=== PATIENT | male | born 1955 | race Caucasian/White ===

== ENCOUNTER 2022-06-27 21:00 | Emergency (ER) | payer MEDICARE, OTHER, SELFPAY ==
[2022-06-27] VITALS (13 sets, daily range): BP systolic 116–235; BP diastolic 64–102; PULSE 52–63; RESP 12–18; TEMP 36.8; O2SAT 93–98
--- NOTE | 2022-06-27 21:23 | ECG_ITS ---
Measurements Intervals [place] Rate: 59 P: 148 IA: 202 QRS: 80 QRSD: 121 T: 72 QT: 465 QTc: 463 Interpretive Statements SINUS BRADYCARDIA BORDERLINE AV CONDUCTION DELAY INTRAVENTRICULAR CONDUCTION DELAY BASELINE WANDER- II, III, AVF, V1-V6 BORDERLINE ECG Electronically Signed On 06-27-2022 21:52:56 CDT by Raz Meade D.O.
--- NOTE | 2022-06-27 21:24 | ED.GENADULT ---
HPI - General Adult General Chief complaint: Recheck/Abnormal Lab/Rx Stated complaint: epitaxis, high blood pressure Time Seen by Provider: 06/27/22 21:15 History of Present Illness HPI narrative: Patient is a 66-year-old male complaining of elevated blood pressure and nosebleed, 3 episodes, started today. Patient states that his blood pressure at home was in the 200s. Patient's nosebleed has resolved. Patient denies any headache, dizziness, chest pain, shortness of breath, abdominal pain, nausea, vomiting, diaphoresis, fever or chills. Related Data Home Medications Medication Instructions Recorded Confirmed aspirin 81 mg tablet,delayed 81 mg PO DAILY 10/23/19 10/23/19 release (Aspir-) atorvastatin 80 mg tablet 80 mg PO HS 10/23/19 10/23/19 fluticasone furoate 200 1 inh inhalation DAILY 10/23/19 10/23/19 mcg-vilanterol 25 mcg/dose inhalation powder (Breo Ellipta) lisinopril 20 mg tablet 20 mg PO DAILY 10/23/19 10/23/19 montelukast 10 mg tablet 10 mg PO HS 10/23/19 10/23/19 rivaroxaban 20 mg tablet (Xarelto) 20 mg PO HS 10/23/19 10/23/19 carvedilol 12.5 mg tablet mg 06/27/22 fexofenadine 180 mg tablet 180 mg PO DAILY 06/27/22 ([facility] Allergy) hydralazine 25 mg tablet mg 06/27/22 spironolactone 25 mg tablet mg 06/27/22 sulfamethoxazole 800 tablet 06/27/22 mg-trimethoprim 160 mg tablet Allergies Allergy/AdvReac Type Severity Reaction Status Date / Time nut - unspecified Allergy Unknown Hives / Verified 06/27/22 21:06 Red Face Review of Systems Review of Systems: All systems reviewed & are unremarkable except as noted in HPI and below Constitutional: Constitutional: Denies body ache(s), Denies chills, Denies excessive sweating, Denies fatigue, Denies fever(s), Denies headache(s), Denies lethargy, Denies malaise, Denies weakness and Denies weight loss Eyes: Eyes: Denies blurry vision, Denies change in vision and Denies loss of vision ENT: Denies dizziness, Denies ear discharge, Denies headache(s), Denies lip swelling, Denies nasal congestion, Denies neck pain, Denies throat swelling and Denies tongue swelling Cardiovascular: Cardiovascular: Denies chest pain, Denies chest pain at rest, Denies chest pain with activity, Denies diaphoresis, Denies rapid heart rate, Denies edema, Denies irregular heart rhythm, Denies lightheadedness, Denies palpitations, Denies dyspnea and Denies dyspnea on exertion Respiratory: Respiratory: Denies chest congestion, Denies cough, Denies hemoptysis, Denies dyspnea and Denies dyspnea on exertion Gastrointestinal: Gastrointestinal: Denies abdominal pain, Denies melena, Denies hematochezia, Denies diarrhea, Denies nausea, Denies vomiting and Denies hematemesis Musculoskeletal: Musculoskeletal: Denies abnormal gait, Denies deformity, Denies joint swelling, Denies limited range of motion, Denies neck pain and Denies numbness Neurologic: Denies Abnormal speech present, Denies abnormal gait, Denies confusion, Denies dizziness, Denies headache(s), Denies focal weakness, Denies loss of vision, Denies numbness, Denies Other visual disturbances, Denies Sensory deficit (Neuro) and Denies weakness Psychiatric: Psychiatric: Denies confusion, Denies depression, Denies auditory hallucinations, Denies homicidal ideation and Denies suicidal ideation Endocrine: Endocrine: Denies cold intolerance, Denies excessive sweating, Denies fatigue, Denies heat intolerance and Denies palpitations Hematologic/Lymphatic: Hematologic/Lymphatic: Denies easy bleeding and Denies easy bruising Allergic/Immunologic: Allergic/Immunologic: Denies lip swelling, Denies throat swelling and Denies tongue swelling PMFSH Comments Past medical history: Hypertension, hyperlipidemia, coronary artery disease Family history: Hypertension Social history: Non-smoker no EtOH or drug use, lives with at home Exam Const: General: cooperative, comfortable, no acute distress, well developed, alert and awake; No confusion
[2022-06-27 21:37] LABS: Basophils Percent Auto 0.6 % (0.2-1.2); Eosinophils Absolute Auto 0.3 K/mm3 (0-0.3); Eosinophils Percent Auto 4.7 % (0-4.4); Hematocrit 44.2 % (42.0-52.0); Hemoglobin 14.6 g/dL (14.0-18.0); Immature Granulocyte Absolute 0.02 K/mm3 (0.00-0.031); Immature Granulocyte Percent A 0.3 % (0-0.5); Lymphocytes Absolute Auto 1.03 K/mm3 (0.9-3.2); Mean Corpuscular Hemoglobin 30.8 pg (26-34); Mean Corpuscular Volume 93.2 fl (80-100); Monocytes Absolute Auto 0.7 K/mm3 (0.1-0.6); Monocytes Percent Auto 10.9 % (2.6-8.5); Neutrophils Absolute Auto 4.4 K/mm3 (1.3-6.7); Neutrophils Percent Auto 67.5 % (45.5-73.1); Platelet Count Result 242 k/mm3 (150-375); Red Blood Count 4.74 M/mm3 (4.6-6.20); White Blood Count 6.4 K/mm3 (4.5-10.0)
[2022-06-27] MEDS: hydrALAZINE HCL 20 MG/ML VIAL 10 MG IV PUSH (21:37)
[2022-06-27 21:46] LABS: Prothrombin Time 13.1 Seconds (11.1-14.7)
[2022-06-27 21:47] LABS: Partial Thromboplastin Time 27.7 SECONDS (22.3-36.8)
[2022-06-27 21:50] LABS: Alanine Aminotransferase 28 U/L (6-50); Albumin Level 4.4 g/dL (3.5-5.1); Alkaline Phosphatase 100 U/L (38-126); Anion Gap 8 mmol/L (8-16); Aspartate Amino Transferase 27 U/L (17-59); Bilirubin,Total 0.8 mg/dL (0.2-1.3); Blood Urea Nitrogen 25 mg/dL (9-20); Calcium 8.9 mg/dL (8.4-10.2); Carbon Dioxide 29 mmol/L (22-30); Chloride 103 mmol/L (98-107); Estimated CRCL calculation 56 ml/min; Estimated Glomerular Filt Rate 44; Glucose 107 mg/dL (65-110); Potassium 4.3 mmol/L (3.4-5.0); Sodium 140 mmol/L (137-145)
[2022-06-27 22:02] LABS: Troponin I < 0.012 ng/mL (0.000-0.034)
== END 2022-06-27 23:02 | disposition home or self-care (01) ==
PROVIDERS: Emergency Provider Emergency Medicine; PCP Internal Medicine
DX: I16.0 Hypertensive urgency (principal); R04.0 Epistaxis; I10 Essential (primary) hypertension; E78.5 Hyperlipidemia, unspecified; I25.10 Atherosclerotic heart disease of native coronary artery without angina pectoris; Z79.01 Long term (current) use of anticoagulants; Z79.82 Long term (current) use of aspirin; R00.1 Bradycardia, unspecified; I45.9 Conduction disorder, unspecified
CPT/HCPCS: 36415; 80053; 84484; 85025; 85610; 85730; 93005; 96374; 99284; J0360

== ENCOUNTER 2022-07-18 17:51 | Emergency (ER) | payer MEDICARE, OTHER, SELFPAY ==
[2022-07-18 17:57] VITALS: BP 214/72; PULSE 70; RESP 16; TEMP 36.5; O2SAT 99
[2022-07-18] MEDS: CELLULOSE OXIDIZED 2 x 14 INCH 1 PKT XX (19:18)
[2022-07-18] MEDS: TETANUS,DIPHTHERIA,AC PERTUSSIS ADULT (0.5 ML) BOOSTRIX IM (20:22)
--- NOTE | 2022-07-18 20:33 | ED.WOUNDLAC ---
HPI - Wound/Laceration General Chief Complaint: Wound/Laceration Stated Complaint: L leg wound Time Seen by Provider: 07/18/22 19:04 Source: patient and RN notes reviewed Mode of arrival: ambulatory Limitations: no limitations History of Present Illness HPI narrative: This is a 66 year old male with history of CAD, stents, atrial fibrillation on chronic anticoagulation who presents for evaluation bleeding wound. Patient suffered a skin tear to his left lower leg 2 days ago. He states he assumed that wound could not be sutures so he has been keeping clean and wearing bandage. He states that today he was unable to keep his wound from bleeding. He denies being lightheaded or dizzy. He states his tetanus shot may have been over 10 years ago. Related Data Home Medications Medication Instructions Recorded Confirmed aspirin 81 mg tablet,delayed 81 mg PO DAILY 10/23/19 10/23/19 release (Aspir-) atorvastatin 80 mg tablet 80 mg PO HS 10/23/19 10/23/19 fluticasone furoate 200 1 inh inhalation DAILY 10/23/19 10/23/19 mcg-vilanterol 25 mcg/dose inhalation powder (Breo Ellipta) montelukast 10 mg tablet 10 mg PO HS 10/23/19 10/23/19 rivaroxaban 20 mg tablet (Xarelto) 20 mg PO HS 10/23/19 10/23/19 carvedilol 12.5 mg tablet mg 06/27/22 fexofenadine 180 mg tablet 180 mg PO DAILY 06/27/22 ([facility]ira Allergy) spironolactone 25 mg tablet mg 06/27/22 Allergies Allergy/AdvReac Type Severity Reaction Status Date / Time nut - unspecified Allergy Unknown Hives / Verified 07/18/22 19:18 Red Face Review of Systems Review of Systems: All systems reviewed & are unremarkable except as noted in HPI and below Constitutional: Constitutional: Denies chills, Denies fatigue and Denies fever(s) Cardiovascular: Cardiovascular: Denies chest pain and Denies radiating jaw, neck or arm pain Hematologic/Lymphatic: Hematologic/Lymphatic: Reports easy bleeding and Reports easy bruising PMFSH Past Medical History Medical History (Updated 07/19/22 @ 00:00 by Background Daemon) Arthritis Asthma Conjunctivitis Establishing care with new doctor, encounter for Heart attack Heart disease Hospital discharge follow-up Hypertension Surgical History Surgical History (Updated 07/19/22 @ 06:12 by Shelia Crooks MD) H/O umbilical hernia repair Family History Family History Father Hypertension Mother Hypertension Social History Social History Smoking status: Never smoker Alcohol intake: current Substance use: never Exam Const: General: no acute distress and alert Nutritional Appearance: well nourished Orientation/consciousness: patient oriented x3 Limitations: no limitations Eyes: EOM: EOMs intact bilaterally Resp: Effort & Inspection: normal respiratory effort Skin: Wounds: wounds noted (left lower medial leg) Other: There is L shaped flap laceration to left medial lower leg. there is 5 mm separation of edge with small punctate area of blood oozing. OTherwise no sign of infection. Neuro: General: patient oriented x3, moves all extremities and CN's II-XI intact bilaterally Gait exam (Neuro): Normal gait present Extrem: Other: see skin regards wound to left lower leg Psych: Mental Status: mental status grossly normal Affect: normal affect Attitude: cooperative Course Reevaluation(s) Reevaluation #1: PAtient's wound occurred 2 days ago so will not suture closed. There was small area that was bleeding. Wound is clean. I injected lidocaine with epi 1 cc. I applied surgicel to open area or wound. Bleeding has stopped. I applied vaseline gauze over it and tefla. 4x 4 gauzed placed and coban used. Bleeding has been controlled. Date: 07/18/22 Time: 20:35 Vital Signs Vital signs: Vital Signs Temperature 97.7 F 07/18/22 17:57 Pulse Rate 70 07/18/22 17:57 Respirato
[2022-07-18 21:00] VITALS: BP 193/90; PULSE 80; RESP 18; O2SAT 98
== END 2022-07-18 21:05 | disposition home or self-care (01) ==
PROVIDERS: Emergency Provider General Practice; PCP Family Medicine
DX: S81.812A Laceration without foreign body, left lower leg, initial encounter (principal); M19.90 Unspecified osteoarthritis, unspecified site; J45.909 Unspecified asthma, uncomplicated; I10 Essential (primary) hypertension; Z79.82 Long term (current) use of aspirin; X58.XXXA Exposure to other specified factors, initial encounter; Z23 Encounter for immunization
CPT/HCPCS: 90471; 90715; 99282